=== PATIENT | female | born 1985 | race Caucasian/White ===

== ENCOUNTER 2020-01-21 04:04 | Emergency (ER) | payer SELFPAY ==
[2020-01-21 04:09] VITALS: BP 125/72; PULSE 93; RESP 16; TEMP 36.8; O2SAT 97
--- NOTE | 2020-01-21 04:15 | W.ED.GENAD ---
Discharge Plan Disposition Patient Disposition: HOME Condition: Improving Discharge Details Clinical Impression: Abdominal pain, Gastroenteritis, Dermoid cyst of both ovaries Primary Care Provider: None,None ED Provider: Zaynab Stokes Home Meds and New Rx's Prescriptions: New metronidazole [Flagyl] 500 mg tablet 500 mg PO Q8H Qty: 21 RF: 0 ciprofloxacin HCl 500 mg tablet 500 mg PO BID Qty: 14 RF: 0 promethazine 25 mg tablet 25 mg PO TID PRN (Reason: nausea and vomiting) Qty: 7 RF: 0 Discharge Instructions Instructions: Ovarian Cyst (ED), Gastroenteritis (ED) Additional Instructions: Drink plenty of fluids and get plenty of rest. Take the antibiotics until finished. Take the nausea medication as needed and directed for nausea or vomiting. Follow-up with women's wellness here at 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 Follow-up with a primary care doctor here or in [place] within the next 2 weeks for reevaluation. Return immediately to the emergency department if you develop any worsening or new concerning symptoms. Referrals: Scott Coe MD [ NON-[facility] STAFF PHYSICIAN] - Discharge Data Discharge Physician: Zaynab Stokes Medical Decision Making <Farhan Shah MD - Last Filed: 01/21/20 07:08> 34 yo female who denies chronic medical problems and denies smoking, alcohol or drug use comes in with cc of nausea and vomit for 24 hours. STates she had some loose stools earlier this week and had a temp to 101 yesterday none since. Then the past 24 hours having nonbloody nonbilious vomit and abdominal cramping. Denies chest pain, dyspnea, vaginal bleeding and denies any chance of being . She has tenderness in the llq without guarding and no distention on exam. Suspect gastorenteritis but will obtain lab work to evaluate for possible hepatitis and pancreatitis and given thepain in the lower abdomen obtain ct to evaluate for diverticulitis. Given the fever will also test for influenza and covid19 labs unremarkable and she feels somewhat better, nausea improved and pain all but gone. CT shows fluid throughout the colon consistent with colitis vs gastroenteritis. She now states she still has had diarrhea so will try to obtain sample and treat the colitis with cipro/flagyl. Also shows bilateral adnexal dermoids larger on the right. Presentation not consistent with torsion given diarrhea but given size of the lesions will obtain u/s to evaluate for this. Pt will be signed out pending radiology interpretation of the u/s. If this is negative and she can tolerate PO suspect she will be able to be d/c'd and f/u with pcp Differential Diagnosis Differential Diagnosis: gastroenteritis, influenza, pancreatitis, diverticulitis Imaging Data Radiologic Study: Attestation: I personally reviewed and interpreted this imaging study as follows: Imaging: CT Scan Radiologist's impression: IMPRESSION: 1. Fluid throughout the colon to the level of the rectum, nonspecific finding which can be seen with any diarrheal state. No significant diverticulosis or diverticulitis. No colitis. 2. Bilateral adnexal dermoids, larger on right than left. No discrete evidence of torsion, rupture or malignant transformation. 3. Small amount of nonspecific free fluid within the pelvis. <Zaynab Stokes DO - Last Filed: 01/21/20 11:38> 0800 -- please see Dr. Shah's note for initial presentation, exam and plan. Case endorsed to follow-up on formal read of pelvic ultrasound, urinalysis and patient response to medications. Pelvic ultrasound resulted and confirms bilateral dermoid cysts without evidence of torsion. This was discussed with OB on-call Dr. Paula who recommends patient follow-up with [facility] outpatient, no acute recommendations. Patient reassessed and she does have a large watery brown bowel movement which smells similar to C. difficile. She is complaining of crampy diffuse abdominal pain and nausea. We will send for C. difficile and fecal bacterial PCR. Patient still unable to give a urine sample. Will give another liter of IV fluids, Phenergan and IV Tylenol. 1115 -- urinalysis negative. Patient able to drink fluids and eat a cracker and no further vomiting or diarrhea. Patient feels better and feels okay to go home at this time. We will send with prescriptions for Cipro and Flagyl. She may be returning to [place] in the next week. She is advised to follow-up with her primary care doctor and [facility] for further evaluation of her gastroenteritis and ovarian dermoid cyst respectively. Usual and customary return precautions given prior to discharge. Medical Records Medical records reviewed: Yes I reviewed the patient's medical records. Imaging Data Radiologic Study: Radiologist's impression: US PELVIS TRANSVAGINAL CLINICAL HISTORY: ovarian masses, ?torsion TECHNIQUE: Transabdominal and transvaginal imaging was performed using standard protocol. COMPARISON: CT CT ABDOMEN PELVIS W from 01/21/2020 FINDINGS: KIDNEYS: Kidneys are symmetric in size. No evidence of renal calculi. No evidence of hydronephrosis. No renal mass or cyst identified. UTERUS: Retroflexed. 6.1 x 4.4 x 5.4 cm Endometrium: 6 millimeters. Small amount of fluid within the endometrial cavity. Myometrium: Unremarkable. Cervix: Unremarkable. OVARIES: Right: Cyst or mass: There is an increased echogenicity lesion seen on the right ovary which shows a few calcifications. It measures roughly 8 cm in diameter. Left: Cyst or mass: 3 centimeter hyperechoic lesion with calcification, consistent with a dermoid. DOPPLER: Color: Symmetric and uniform flow to both ovaries. No hyperemia. Duplex: Normal ovarian arterial waveforms visualized. CUL-DE-SAC: Free fluid: [id number] quantity IMPRESSION: 1. Normal-appearing uterus with endometrial stripe within normal limits. 2. Findings are consistent with bilateral dermoid cysts, right larger than left. There is no evidence of torsion. CT Abdomen And Pelvis With Contrast Exam date and time: 01/21/2020 4:15 AM Age: 34 years old Clinical indication: Abdominal pain; Localized; Left lower quadrant (llq); Patient HX: Nausea/vomiting/fever, diarrhea, left lower abd pain x24hrs TECHNIQUE: Imaging protocol: Computed tomography of the abdomen and pelvis with intravenous contrast. Radiation optimization: All CT scans at this facility use at least one of these dose optimization techniques: automated exposure control; mA and/or kV adjustment per patient size (includes targeted exams where dose is matched to clinical indication); or iterative reconstruction. Contrast material: [id number]; Contrast volume: 87 ml; Contrast route: INTRAVENOUS (IV); COMPARISON: No relevant prior studies available. FINDINGS: Lungs: Minimal dependent basilar atelectasis. Liver: No enlargement or mass. Gallbladder and bile ducts: Unremarkable without gallstones, wall thickening or other findings of acute cholecystitis. Biliary tract nondilated. Pancreas: No enlargement. No mass. No ductal dilatation. Spleen: Normal size. No mass. Adrenals: No mass. No enlargement. No hemorrhage. Kidneys and ureters: No hydroureter or ureterolithiasis. Stomach and bowel: Fluid throughout the large bowel to the level of the rectum which is nonspecific and can be seen in any diarrheal state. No significant diverticulosis or diverticulitis. No colitis. Small bowel normal caliber. No mechanical obstruction. No pneumatosis. Stomach decompressed but unremarkable. Appendix: Normal appearance without acute inflammation. Intraperitoneal space: Small amount of low attenuation free fluid within the pelvis, nonspecific. No free intraperitoneal air demonstrated. Vasculature: Aorta normal caliber without aneurysm, dissection or disruption. Lymph nodes: No significant lymphadenopathy demonstrated. Urinary bladder: Decompressed without wall thickening, mass or calculus. Reproductive: Retroflexed uterus. Large right adnexal dermoid, measuring 7.3 cm x 6.9 cm x 6.8 cm. No discrete evidence of torsion, rupture or malignant transformation. Left adnexal dermoid measures 3.1 cm by 3.7 cm x 3.0 cm. No discrete evidence of torsion, rupture or malignant transformation. Bones/joints: Osseous structures unremarkable as demonstrated Soft tissues: Small uncomplicated fat containing umbilical hernia. IMPRESSION: 1. Fluid throughout the colon to the level of the rectum, nonspecific finding which can be seen with any diarrheal state. No significant diverticulosis or diverticulitis. No colitis. 2. Bilateral adnexal dermoids, larger on right than left. No discrete evidence of torsion, rupture or malignant transformation. 3. Small amount of nonspecific free fluid within the pelvis. Lab Data Lab results reviewed: Yes I reviewed the patient's lab results. Labs: 01/21/20 08:57 Stool Clostridioides difficile Screen - Final 01/21/20 04:25 Nasopharynx Influenza Types A,B Antigen - Final Laboratory Tests Range/Units 01/21/20 01/21/20 01/21/20 04:20 04:20 08:31 WBC (4.4-10.8) 10^3/uL 6.57 RBC (3.93-5.22) 10^6/uL 5.01 Hgb (11.2-15.7) g/dL 14.6 Hct (36.0-46.0) % 44.8 MCV (80-95) fL 89.4 MCH (27.0-33.0) pg 29.1 MCHC (32.0-36.0) % 32.6 RDW (11.7-14.6) % 12.7 Plt Count (130-400) 10^3/uL 208 MPV (8.0-11.0) fL 9.8 Immature Gran % 0.2 Neutrophils % 85.6 Lymphocytes % 6.7 Monocytes % 7.0 Eosinophils % 0.2 Basophils % 0.3 Nucleated RBC % % 0 Absolute Neutrophils (1.2-6.7) 10^3/uL 5.63 Absolute Lymphocytes (1.2-3.4) 10^3/uL 0.44 L Absolute Monocytes (0.1-0.8) 10^3/uL 0.46 Absolute Eosinophils (0.0-0.7) 10^3/uL 0.01 Absolute Basophils (0.0-0.2) 10^3/uL 0.02 Sodium (136-145) mmol/L 134 L Potassium (3.5-5.1) mmol/L 3.3 L Chloride (98-107) mmol/L 101 Carbon Dioxide (21.0-32.0) mmol/L 21.1 Anion Gap (3-11) mmol/L 11.9 H BUN (7-18) mg/dL 13 Creatinine (0.55-1.02) mg/dL 0.82 Estimated GFR/1.73 m2 (mL/min/1.73m2) >= 60.00 Glucose (74-106) mg/dL 109 H Calcium (8.5-10.1) mg/dL 9.0 Magnesium (1.8-2.4) mg/dL 2.2 Total Bilirubin (0.2-1.0) mg/dL 0.4 AST (15-37) U/L 27 ALT (14-59) U/L 20 Alkaline Phosphatase (46-116) U/L 85 Total Protein (6.4-8.2) g/dL 7.6 Albumin (3.4-5.0) g/dL 3.9 Lipase (73-393) U/L 119 Serum HCG, Qual Negative Urine Color (Yellow) Urine Clarity (Clear) Urine pH (5-8) Ur Specific [place] (1.005-1.025) Urine Protein (Negative) mg/dL Urine Ketones (Negative) mg/dL Urine Blood (Negative) Urine Nitrite (Negative) Urine Bilirubin (Negative) Urine Urobilinogen (Up TO 0.2) EU/dL Ur Leukocyte Esterase (Negative) Urine RBC (0-2) HPF Urine WBC (0-5) HPF Ur Epithelial Cells (Negative) HPF Urine Crystals (Negative) HPF Urine Bacteria (Negative) HPF Urine Casts (Negative) LPF Urine Mucus (Negative) Ur Culture Indicated? Urine Glucose (Negative) mg/dL Stl C.difficile Tox PCR Range/Units 01/21/20 01/21/20 08:57 10:31 WBC (4.4-10.8) 10^3/uL RBC (3.93-5.22) 10^6/uL Hgb (11.2-15.7) g/dL Hct (36.0-46.0) % MCV (80-95) fL MCH (27.0-33.0) pg MCHC (32.0-36.0) % RDW (11.7-14.6) % Plt Count (130-400) 10^3/uL MPV (8.0-11.0) fL Immature Gran % Neutrophils % Lymphocytes % Monocytes % Eosinophils % Basophils % Nucleated RBC % % Absolute Neutrophils (1.2-6.7) 10^3/uL Absolute Lymphocytes (1.2-3.4) 10^3/uL Absolute Monocytes (0.1-0.8) 10^3/uL Absolute Eosinophils (0.0-0.7) 10^3/uL Absolute Basophils (0.0-0.2) 10^3/uL Sodium (136-145) mmol/L Potassium (3.5-5.1) mmol/L Chloride (98-107) mmol/L Carbon Dioxide (21.0-32.0) mmol/L Anion Gap (3-11) mmol/L BUN (7-18) mg/dL Creatinine (0.55-1.02) mg/dL Estimated GFR/1.73 m2 (mL/min/1.73m2) Glucose (74-106) mg/dL Calcium (8.5-10.1) mg/dL Magnesium (1.8-2.4) mg/dL Total Bilirubin (0.2-1.0) mg/dL AST (15-37) U/L ALT (14-59) U/L Alkaline Phosphatase (46-116) U/L Total Protein (6.4-8.2) g/dL Albumin (3.4-5.0) g/dL Lipase (73-393) U/L Serum HCG, Qual Urine Color (Yellow) Yellow Urine Clarity (Clear) Clear Urine pH (5-8) 5.5 Ur Specific Midway (1.005-1.025) 1.025 Urine Protein (Negative) mg/dL Negative Urine Ketones (Negative) mg/dL >=160 H Urine Blood (Negative) Trace-lysed H Urine Nitrite (Negative) Negative Urine Bilirubin (Negative) Small H Urine Urobilinogen (Up TO 0.2) EU/dL 0.2 Ur Leukocyte Esterase (Negative) Negative Urine RBC (0-2) HPF 0-2 Urine WBC (0-5) HPF 0-2 Ur Epithelial Cells (Negative) HPF Few Urine Crystals (Negative) HPF Negative Urine Bacteria (Negative) HPF Few Urine Casts (Negative) LPF Negative Urine Mucus (Negative) Trace Ur Culture Indicated? No Urine Glucose (Negative) mg/dL Negative Stl C.difficile Tox PCR Cancelled HPI <Farhan Shah MD - Last Filed: 01/21/20 07:08> General Mode of arrival: ambulatory. Date/Time Provider Initiated Documentation: 01/21/20 04:07. Limitations to Documentation: no limitations. Information obtained by: patient. History of Present Illness 34 year old F presents to the emergency department with the chief complaint of nausea and vomit, described as moderate, and it has been intermittent. No relieving factors improve symptom(s), No exacerbating factors reported . Patient did receive the following treatments prior to arrival, none Related Data Home Medications Medication Instructions Recorded Confirmed ciprofloxacin HCl 500 mg PO BID #14 tab 01/21/20 metronidazole [Flagyl] 500 mg PO Q8H #21 tab 01/21/20 promethazine 25 mg PO TID PRN #7 tab 01/21/20 Previous Rx's Medication Instructions Recorded ciprofloxacin HCl 500 mg PO BID #14 tab 01/21/20 metronidazole [Flagyl] 500 mg PO Q8H #21 tab 01/21/20 promethazine 25 mg PO TID PRN #7 tab 01/21/20 Allergies Allergy/AdvReac Type Severity Reaction Status Date / Time Penicillins Allergy Skin Rash Unverified 01/21/20 04:11 General Stated Complaint: Nausea/Vomit/Diar JANEE: 3 Review of Systems <Farhan Shah MD - Last Filed: 01/21/20 07:08> All systems reviewed & are unremarkable except as noted in HPI and below Constitutional Constitutional: Denies chills, Denies fever(s) and Denies weakness Cardiovascular Cardiovascular: Denies chest pain and Denies dyspnea Respiratory Respiratory: Denies cough and Denies dyspnea Genitourinary Genitourinary: Denies dysuria Musculoskeletal Musculoskeletal: Denies joint swelling Neurologic Neurologic: Denies weakness Psychiatric Psychiatric: Denies depression PFSH <Farhan Shah MD - Last Filed: 01/21/20 07:08> Social History Smoking/Tobacco Use Status: Never Alcohol Intake: never Substance use type: does not use Do you feel safe at home: Yes Do you feel safe in your relationship?: Yes Exam <Farhan Shah MD - Last Filed: 01/21/20 07:08> Const General: no acute distress Orientation: alert HENMT Head: normal to inspection Ears: external ears normal General nose exam: external nose normal Mouth: moist mucous membranes Eyes General: appearance normal, both eyes and all related structures Neck Neck: normal visual inspection Resp Effort & Inspection: normal respiratory effort and able to speak in complete sentences Cardio Rate: regular rate GI Palpation: soft and tender Skin General skin exam: no rashes or lesions noted Neuro General: patient alert and patient oriented x3 Extrem General: normal to inspection Psych Mental Status: mental status grossly normal Course <Farhan Shah MD - Last Filed: 01/21/20 07:08> Vital Signs Vital signs: Vital Signs Temperature 36.8 C 01/21/20 04:09 Pulse 93 H 01/21/20 04:09 Respiratory Rate 16 01/21/20 04:09 Blood Pressure 125/72 01/21/20 04:09 Pulse Oximetry 97 01/21/20 04:09 Temperature 36.8 C 01/21/20 04:09 Temperature Source Skin 01/21/20 04:09 Pulse 93 H 01/21/20 04:09 Respiratory Rate 16 01/21/20 04:09 Blood Pressure 125/72 01/21/20 04:09 Blood Pressure Position Supine 01/21/20 04:09 Pulse Oximetry 97 01/21/20 04:09 Oxygen Delivery Method Room Air 01/21/20 04:09 Oxygen Flow Rate 0 01/21/20 04:09 Pain Level 7 10/23/20 04:09 Sign Out <Farhan Shah MD - Last Filed: 01/21/20 07:08> Sign Out Data: Sign Out Comment: follow up u/s reading and PO challenge, gastroenteritis symptoms Last updated by Farhan Shah MD at 01/21/20 07:09
[2020-01-21] MEDS: Normal Saline 1,000 ML 1000 ML IV ×2 (04:32→08:37)
[2020-01-21] MEDS: Ondansetron 4 MG/2 ML VIAL IVP (04:33)
[2020-01-21 04:42] LABS: Abs Immature Grans 0.01 10^3/uL (0.0-0.06); Absolute Basophil Count 0.02 10^3/uL (0.0-0.2); Absolute Eosinophil Count 0.01 10^3/uL (0.0-0.7); Absolute Lymphocyte Count 0.44 10^3/uL (1.2-3.4); Absolute Monocyte Count 0.46 10^3/uL (0.1-0.8); Absolute Neutrophil Count 5.63 10^3/uL (1.2-6.7); Basophils % 0.3; Eosinophils % 0.2; HCT 44.8 % (36.0-46.0); HGB 14.6 g/dL (11.2-15.7); Immature Grans % 0.2; Lymphocytes % 6.7; MCH 29.1 pg (27.0-33.0); MCHC 32.6 % (32.0-36.0); MCV 89.4 fL (80-95); MPV 9.8 fL (8.0-11.0); Neutrophils % 85.6; Nucleated RBC 0 %; Platelet Count 208 10^3/uL (130-400); RBC 5.01 10^6/uL (3.93-5.22); RDW 12.7 % (11.7-14.6); RDW-SD 41.6 fL; WBC 6.57 10^3/uL (4.4-10.8)
--- NOTE | 2020-01-21 04:58 | DI.CT_ITS ---
EXAM: CT ABDOMEN PELVIS W CLINICAL HISTORY: left lower abdominal pain. TECHNIQUE: Imaging Protocol: Axial computed tomography images with coronal and sagittal reformatted images were created and reviewed CONTRAST MATERIAL: Intravenous: Omnipaque 350 Contrast volume:87 Oral: no COMPARISON: US US PELVIS TRANSVAGINAL from 01/21/2020 FINDINGS: ABDOMEN: Lung Bases: Normal where visualized. Liver: Normal density. No measurable mass. Gallbladder and biliary tract: No radiodense calculus or dilation. Pancreas: Normal density, no abnormal calcifications or inflammatory process. Spleen: Normal. Kidneys: Normal size, contour and axis. No radiodense stones or obstructive uropathy. No masses seen. Adrenal glands: No masses seen. Abdominal Aorta: Abdominal portion non-dilated. PELVIS: Bladder: Symmetric distention, no gross wall thickening. Bowel: No obstruction or bowel wall thickening. There is fluid seen in the colon. There is no abnorm al colonic or small bowel dilatation. There is no significant quantity of stool. There is no surrou nding edema. The appendix appears normal. There is some high density material within the bowel cons istent with ingested material. Peritoneal cavity: No ascites, collection or mesenteric inflammatory response. Bones: Within normal limits. Reproductive organs: Retroflexed uterus. There is a 7.3 centimeter mainly fatty density lesion invol ving the right ovary, consistent with a dermoid. A calcification is seen. An additional fatty lesio n is noted on the left ovary measuring 3.7 cm in greatest dimension. There is no evidence of torsion . There is a physiologic amount of fluid in the pelvis. Lymph nodes: Unremarkable. Impression: 1. Fluid within the colon consistent with diarrheal illness. No evidence of obstruction or colitis. 2. Bilateral ovarian dermoids. No findings to suggest torsion. RADIATION DOSE DELIVERED: 794.87mGy.cm Total DLP DATA REPOSITORY: All CT scans at this facility are submitted to the National Radiology Data Registry (NRDR) Dose Index Registry (DIR) with the [employer] (A[employer]). RADIATION OPTIMIZATION: All CT scans at this facility use at least one of these dose optimization te chniques: automated exposure control; mA and/or kV adjustment per patient size (includes targeted exa ms where dose is matched to clinical indication); or iterative reconstruction.
[2020-01-21 05:00] LABS: ALT 20 U/L (14-59); AST 27 U/L (15-37); Albumin 3.9 g/dL (3.4-5.0); Alkaline Phosphatase 85 U/L (46-116); Anion Gap 11.9 mmol/L (3-11); BUN 13 mg/dL (7-18); Bilirubin, Total 0.4 mg/dL (0.2-1.0); CO2 21.1 mmol/L (21.0-32.0); CREATININE 0.82 mg/dL (0.55-1.02); Chloride 101 mmol/L (98-107); Glucose 109 mg/dL (74-106); Lipase 119 U/L (73-393); Magnesium 2.2 mg/dL (1.8-2.4); Potassium 3.3 mmol/L (3.5-5.1); Sodium 134 mmol/L (136-145); Total Protein 7.6 g/dL (6.4-8.2)
[2020-01-21] MEDS: Normal Saline Flush 10 ML SYR IVP (05:20)
[2020-01-21] MEDS: Omnipaque 350 MG/ML 100 ML BTL 87 ML IJ (05:21)
[2020-01-21] MEDS: Normal Saline - Diluent 50 ML VIAL IV (05:22)
[2020-01-21 05:38] VITALS: BP 101/69; PULSE 88; RESP 14; TEMP 36.9; O2SAT 97
--- NOTE | 2020-01-21 05:55 | DI.VRAD_ITS ---
PROCEDURE INFORMATION: Exam: CT Abdomen And Pelvis With Contrast Exam date and time: 01/21/2020 4:15 AM Age: 34 years old Clinical indication: Abdominal pain; Localized; Left lower quadrant (llq); Patient HX: Nausea/vomiting/fever, diarrhea, left lower abd pain x24hrs TECHNIQUE: Imaging protocol: Computed tomography of the abdomen and pelvis with intravenous contrast. Radiation optimization: All CT scans at this facility use at least one of these dose optimization techniques: automated exposure control; mA and/or kV adjustment per patient size (includes targeted exams where dose is matched to clinical indication); or iterative reconstruction. Contrast material: [id number]; Contrast volume: 87 ml; Contrast route: INTRAVENOUS (IV); COMPARISON: No relevant prior studies available. FINDINGS: Lungs: Minimal dependent basilar atelectasis. Liver: No enlargement or mass. Gallbladder and bile ducts: Unremarkable without gallstones, wall thickening or other findings of acute cholecystitis. Biliary tract nondilated. Pancreas: No enlargement. No mass. No ductal dilatation. Spleen: Normal size. No mass. Adrenals: No mass. No enlargement. No hemorrhage. Kidneys and ureters: No hydroureter or ureterolithiasis. Stomach and bowel: Fluid throughout the large bowel to the level of the rectum which is nonspecific and can be seen in any diarrheal state. No significant diverticulosis or diverticulitis. No colitis. Small bowel normal caliber. No mechanical obstruction. No pneumatosis. Stomach decompressed but unremarkable. Appendix: Normal appearance without acute inflammation. Intraperitoneal space: Small amount of low attenuation free fluid within the pelvis, nonspecific. No free intraperitoneal air demonstrated. Vasculature: Aorta normal caliber without aneurysm, dissection or disruption. Lymph nodes: No significant lymphadenopathy demonstrated. Urinary bladder: Decompressed without wall thickening, mass or calculus. Reproductive: Retroflexed uterus. Large right adnexal dermoid, measuring 7.3 cm x 6.9 cm x 6.8 cm. No discrete evidence of torsion, rupture or malignant transformation. Left adnexal dermoid measures 3.1 cm by 3.7 cm x 3.0 cm. No discrete evidence of torsion, rupture or malignant transformation. Bones/joints: Osseous structures unremarkable as demonstrated Soft tissues: Small uncomplicated fat containing umbilical hernia. IMPRESSION: 1. Fluid throughout the colon to the level of the rectum, nonspecific finding which can be seen with any diarrheal state. No significant diverticulosis or diverticulitis. No colitis. 2. Bilateral adnexal dermoids, larger on right than left. No discrete evidence of torsion, rupture or malignant transformation. 3. Small amount of nonspecific free fluid within the pelvis. Dictated and Authenticated by: Frank Shin MD. Ordering:MILTON Real MD
--- NOTE | 2020-01-21 06:10 | DI.US_ITS ---
EXAM: US PELVIS TRANSVAGINAL CLINICAL HISTORY: ovarian masses, ?torsion TECHNIQUE: Transabdominal and transvaginal imaging was performed using standard protocol. COMPARISON: CT CT ABDOMEN PELVIS W from 01/21/2020 FINDINGS: KIDNEYS: Kidneys are symmetric in size. No evidence of renal calculi. No evidence of hydronephrosis. No renal mass or cyst identified. UTERUS: Retroflexed. 6.1 x 4.4 x 5.4 cm Endometrium: 6 millimeters. Small amount of fluid within the endometrial cavity. Myometrium: Unremarkable. Cervix: Unremarkable. OVARIES: Right: Cyst or mass: There is an increased echogenicity lesion seen on the right ovary which shows a few calcifications. It measures roughly 8 cm in diameter. Left: Cyst or mass: 3 centimeter hyperechoic lesion with calcification, consistent with a dermoid. DOPPLER: Color: Symmetric and uniform flow to both ovaries. No hyperemia. Duplex: Normal ovarian arterial waveforms visualized. CUL-DE-SAC: Free fluid: [id number] quantity IMPRESSION: 1. Normal-appearing uterus with endometrial stripe within normal limits. 2. Findings are consistent with bilateral dermoid cysts, right larger than left. There is no evidenc e of torsion. DATA REPOSITORY:
[2020-01-21] MEDS: metroNIDAZOLE 500 MG TAB PO (08:07)
[2020-01-21] MEDS: Ciprofloxacin 500 MG TAB PO (08:16)
[2020-01-21 09:01] VITALS: TEMP 36.6
[2020-01-21 09:12] LABS: HCG Qual (Serum) Negative
[2020-01-21] MEDS: ACETAMINOPHEN 1,000 MG/100 ML BTL 400 MG IVPB (10:03)
[2020-01-21 10:04] VITALS: PULSE 84; RESP 16; TEMP 36.6; O2SAT 98
[2020-01-21 10:51] LABS: Bilirubin Small (Negative); Blood Trace-lysed (Negative); Clarity Clear (Clear); Glucose Negative (Negative); Ketones >=160 mg/dL (Negative); Leukocyte Esterase Negative (Negative); Nitrite Negative (Negative); Specific Gravity 1.025 (1.005-1.025); Urobilinogen 0.2 EU/dL (Up TO 0.2); pH 5.5 (5-8)
[2020-01-21 11:00] LABS: Bacteria Few HPF (Negative); C & S Indicated? No; Casts Negative LPF (Negative); Crystals Negative HPF (Negative); Epithelial Cells Few HPF (Negative); Mucus Trace (Negative); RBC 0-2 HPF (0-2); WBC 0-2 HPF (0-5)
[2020-01-21 11:42] VITALS: PULSE 86; RESP 16; TEMP 36.8; O2SAT 98
[2020-01-21 12:34] LABS: COVID-19 RT-PCR UVMMC Result Negative (Negative)
--- NOTE | 2020-01-21 13:28 | NUR.NOTE ---
Nursing Note: Attempted to leave message @ [phone] regarding COVID results at 1328- left VM to return phone call.
--- NOTE | 2020-01-21 16:45 | NUR.NOTE ---
Nursing Note: Negative COVID result given to pt by Dr. Stokes after identity verified at 1645.
[2020-02-10 09:33] LABS: Misc Referral (VDH) See Comments
== END 2020-01-21 12:07 | disposition home or self-care (01) ==
PROVIDERS: Emergency Medicine; Emergency Provider Physician Assistant
DX: D27.0 Benign neoplasm of right ovary (principal); D27.1 Benign neoplasm of left ovary; K52.9 Noninfective gastroenteritis and colitis, unspecified; R10.32 Left lower quadrant pain; R50.9 Fever, unspecified; Z03.818 Encounter for observation for suspected exposure to other biological agents ruled out
CPT/HCPCS: 36415; 80053; 81025; 83690; 87449; 87493; 87505; 96361; 96365; 96367; 96375; 99285; U0003; 74177; 76830; 76856; 81003; 81015; 83735; 84703; 85025; 87324; 99284; J0131; J2405; J3490